=== PATIENT | female | born 1985 | race Caucasian/White ===

== ENCOUNTER 2016-10-12 23:04 | Emergency (ER) | payer OTHER ==
--- NOTE | 2016-10-13 00:46 | ED CLINICAL REPORT ---
Clinical Report - Physicians/Mid Levels [facility] [address] [place] [address] 10/12/2016 23:05 Patient: NORRIS BHAGAT Time Seen: 23:12; initial patient contact. Arrived- By private vehicle. Historian- patient. HISTORY OF PRESENT ILLNESS Chief Complaint: DENTAL PAIN. This started about 6 months ago and is still present. Pain described as moderate. The patient has had toothache. No swollen jaw or face, jaw pain or facial pain. Similar symptoms previously: Many times. Recent medical care: Not recently seen/assessed. REVIEW OF SYSTEMS No fever, nausea, headache or vomiting. All systems otherwise negative, except as recorded above. PAST HISTORY Dental Caries. Healing Abscess. Cellulitis. Abscess Check. Tetanus Status. Abscess. Asthma. ADDITIONAL SURGERIES: Appendectomy. SOCIAL HISTORY Current every day smoker. No alcohol use or drug use. ADDITIONAL NOTES The nursing notes have been reviewed. PHYSICAL EXAM Vital Signs: 10/12/2016 23:11 BP: 127/79. HR: 88. RR: 20. O2 saturation: 97%. Temp: 98.4 F. Pain level now: 8/10. Have been reviewed as normal. Appearance: Alert. No acute distress. Head: Normal external inspection. ENT: Moderate, localized dental decay (upper right first premolar and second premolar). Moderate dental tenderness of multiple teeth (upper right first premolar and second premolar). No gingival tenderness, induration, swelling or fluctuance. Ears normal. Nose normal. Gums normal. No trismus present. Neck: No adenopathy. PROGRESS AND PROCEDURES Course of Care: Hydrocodone/APAP 5 mg PO given. Physical exam findings are improved. Symptoms much better. Disposition: Discharged home in good and improved condition. Condition: good. CLINICAL IMPRESSION Moderate dental pain. INSTRUCTIONS Your Current Medications: CONTINUE TAKING THE FOLLOWING MEDICATIONS: Gabapentin Oral. Methadone HCl Oral. Vistaril Oral. Wellbutrin SR Oral. Prescription Medications: Hydrocodone/APAP 5mg / 325mg: take 1 orally every 6 hours as needed for pain. Dispense fifteen (15). No refill. Follow-up: Screening today revealed the patient's blood pressure to be in the pre-hypertensive range. The patient should follow up with a primary care provider for blood pressure management. Follow-up with: [facility], , , , , , Follow up in about two days. Call for an appointment. (Electronically signed by Michel Rodrigues Dr. 10/13/2016 10:12)
--- NOTE | 2016-10-13 00:46 | ED CLINICAL REPORT ---
Clinical Report - Physicians/Mid Levels [facility] [address] [place] [address] 10/12/2016 23:05 Patient: NORRIS BHAGAT Time Seen: 23:12; initial patient contact. Arrived- By private vehicle. Historian- patient. HISTORY OF PRESENT ILLNESS Chief Complaint: DENTAL PAIN. This started about 6 months ago and is still present. Pain described as moderate. The patient has had toothache. No swollen jaw or face, jaw pain or facial pain. Similar symptoms previously: Many times. Recent medical care: Not recently seen/assessed. REVIEW OF SYSTEMS No fever, nausea, headache or vomiting. All systems otherwise negative, except as recorded above. PAST HISTORY Dental Caries. Healing Abscess. Cellulitis. Abscess Check. Tetanus Status. Abscess. Asthma. ADDITIONAL SURGERIES: Appendectomy. SOCIAL HISTORY Current every day smoker. No alcohol use or drug use. ADDITIONAL NOTES The nursing notes have been reviewed. PHYSICAL EXAM Vital Signs: 10/12/2016 23:11 BP: 127/79. HR: 88. RR: 20. O2 saturation: 97%. Temp: 98.4 F. Pain level now: 8/10. Have been reviewed as normal. Appearance: Alert. No acute distress. Head: Normal external inspection. ENT: Moderate, localized dental decay (upper right first premolar and second premolar). Moderate dental tenderness of multiple teeth (upper right first premolar and second premolar). No gingival tenderness, induration, swelling or fluctuance. Ears normal. Nose normal. Gums normal. No trismus present. Neck: No adenopathy. PROGRESS AND PROCEDURES Course of Care: Hydrocodone/APAP 5 mg PO given. Physical exam findings are improved. Symptoms much better. Disposition: Discharged home in good and improved condition. Condition: good. CLINICAL IMPRESSION Moderate dental pain. INSTRUCTIONS Your Current Medications: CONTINUE TAKING THE FOLLOWING MEDICATIONS: Gabapentin Oral. Methadone HCl Oral. Vistaril Oral. Wellbutrin SR Oral. Prescription Medications: Hydrocodone/APAP 5mg / 325mg: take 1 orally every 6 hours as needed for pain. Dispense fifteen (15). No refill. Follow-up: Screening today revealed the patient's blood pressure to be in the pre-hypertensive range. The patient should follow up with a primary care provider for blood pressure management. Follow-up with: [facility], , , , , , Follow up in about two days. Call for an appointment. (Electronically signed by Michel Rodrigues Dr. 10/13/2016 10:12)
--- NOTE | 2016-10-13 00:46 | ED ORDER SUMMARY ---
..... Patient: NORRIS BHAGAT OrderSheet [facility] VisitID: [id number] [address] [place] [address] 30y, F Registration Date/Time: 10/12/2016 ORDER SHEET Weight: 131.5 kg (stated) Allergies: NSAIDs GENERAL ORDERS: MEDICATION ORDERS: Hydrocodone-APAP PO 5/325 mg (NOW, HIGH ALERT MEDICATION) (00:04 10/13/2016 Julieta Milner) (Ack 0:06 Tawanda R.NRufino) (0:12 HSoule) IV FLUIDS: ORDER SHEET NOTES: [Electronically signed by Leena Bush (03:21 10/13/2016)] [Electronically signed by Michel Rodrigues Dr. (10:12 10/13/2016)] [Electronically locked/signed by Leena Bush (03:21 10/13/2016)]
--- NOTE | 2016-10-13 00:46 | ED ORDER SUMMARY ---
..... Patient: NORRIS BHAGAT OrderSheet [facility] VisitID: [id number] [address] [place] [address] 30y, F Registration Date/Time: 10/12/2016 ORDER SHEET Weight: 131.5 kg (stated) Allergies: NSAIDs GENERAL ORDERS: MEDICATION ORDERS: Hydrocodone-APAP PO 5/325 mg (NOW, HIGH ALERT MEDICATION) (00:04 10/13/2016 Julieta iMlner) (Ack 0:06 Tawanda R.NRufino) (0:12 HSoule) IV FLUIDS: ORDER SHEET NOTES: [Electronically signed by Leena Bush (03:21 10/13/2016)] [Electronically signed by Michel Rodrigues Dr. (10:12 10/13/2016)] [Electronically locked/signed by Leena Bush (03:21 10/13/2016)]
--- NOTE | 2016-10-13 00:46 | ED NURSING NOTES ---
Clinical Report - [facility] [address] [place] [address] 10/12/2016 23:05 [id number] Triage time 23:Oct 12 2016. Acuity: LEVEL 4. Chief Complaint: RIGHT LOWER and LEFT LOWER TOOTHACHE. SEPSIS SCREEN: Sepsis Screen: negative. Negative (no infection suspected/documented). RENEE COMA SCORE: Renee Coma Scale: 15- eyes open spontaneously (4); best verbal response- oriented x 4 (5); best motor response- obeys commands (6). --23:17 Leena Bush 23:11 10/12/16. BP: 127/79. HR: 88. RR: 20. O2 saturation: 97% on room air. Temp: 98.4 F (oral). Pain level now: 02/23. --23:17 Leena Bush. Weight: 131.5 kg stated. Height/Length: 62 inches Per Patient. BMI: 53.1. --23:14 Leena Bush. Medications Wellbutrin SR Oral. --23:13 Leena Bush Vistaril Oral. --23:13 Leena Bush Gabapentin Oral. --23:14 Leena Bush Methadone HCl Oral. --23:14 Leena Bush. Allergies NSAIDs. --23:13 Leena Bush. History Arrived by private vehicle. Historian: patient. Accompanied by family. This is a recurrent problem. (months). ( Patient reports six months of dental pain and issues with decayed broken teeth on both the right and left lower jaw. She reports a one year wait for state dental. She reports previous use of antibiotics with no improvement. She reports the pain has increased and she could not wait anymore to be seen.). She has no dental appointment scheduled. PAST MEDICAL HX: Immunizations: up-to-date. Last normal menstrual period- September 20. SOCIAL HX: Light tobacco smoker (cigarette)- less than 1/2 a pack per day. No alcohol use or drug use. No infectious disease exposure. ABUSE ASSESSMENT: No report of abuse. FALL RISK ASSESSMENT: Fall risk assessment completed. No fall risk identified. NUTRITIONAL RISK ASSESSMENT: The nutritional risk assessment revealed no deficiencies. FUNCTIONAL ASSESSMENT: Functional assessment: no impairments noted. LEARNING NEEDS ASSESSMENT: The learning needs assessment revealed no barriers. SKIN INTEGRITY ASSESSMENT: Skin integrity risk assessment completed. No skin integrity risk identified. --23:17 Leena Bush. PROBLEMS: Dental Caries. Healing Abscess. Cellulitis. Abscess Check. Tetanus Status. Abscess. Asthma. Immunizations. LNMP - Last Normal Menstrual Period. --23:14 Leena Bush. ADDITIONAL SURGERIES: Appendectomy. --23:14 Leena Bush. Interventions ID band on patient. To treatment room. --23:17 Leena Bush. PHYSICAL ASSESSMENT Ambulatory to room. GENERAL / NEURO / PSYCH: Alert. Oriented X 4. Appears in no acute distress. HEENT: Dental decay (right lower molar area, left lower molar area). Mucous membranes are pink. RESPIRATORY: Respirations not labored. SKIN: Skin is warm and dry. --23:18 Leena Bush. NURSING PROGRESS NOTES 23:18 10/12/16. Pulse oximeter and NIBP monitor placed on patient. Reassurance given to the patient. Two patient identifiers checked. Call light placed in reach. Side rails up x 1. Bed placed in lowest position. Brakes of bed on. Patient ready for evaluation- chart flagged and ED physician notified. --23:18 Leena Bush 00:12 10/13/2016 Hydrocodone-APAP (Hydrocodone-Acetaminophen) PO 5/325 mg Tablets 1 tab given. Allergies verified, confirmed 5 rights and sedative warning given to the patient and patient's family. --00:12 Leena Bush Reassessment after medication administered. Overall patient status- she states feels better. --00:39 Leena Bush. DISPOSITION / DISCHARGE 01:00 10/13/16. Condition at departure: improved and stable. The goals identified in the patient's plan of care were met. No learning barriers present. Discharge instructions provided and reviewed with the patient and spouse. Reviewed medication(s) side effects, precautions, dosing and course information. Prescription(s) given to the patient. Patient and spouse verbalized understanding. Written instructions provided in Guyanese. ( Dental resources provided, suggested to patient to visit walk in hours for [facility]. Swish with warm salt water, take anti-inflammatories as needed. Do not drive while on sedative medications. Return if symptoms of infection present.). The patient was discharged by the physician. She was discharged home and accompanied by spouse. She left the Emergency Department ambulatory and via private vehicle. Spouse driving. FALL RISK ASSESSMENT: Fall risk assessment completed. No fall risk identified. --03:19 Leena Bush 01:00 10/13/16. BP: 126/60. HR: 87. RR: 20. O2 saturation: 97% on room air. Temp: 98.2 F (oral). Pain level now: 11/23. --03:19 Leena Bush. Locked/Released at 10/13/2016 3:21 by Leena Bush,
--- NOTE | 2016-10-13 10:12 | ED DISCHARGE INSTRUCTIONS ---
Patient: NORRIS BHAGAT General Instructions [facility] VisitID: [id number] [place] [address] 30y, F Registration Date/Time: 10/12/2016 Moderate dental pain. INSTRUCTIONS Your Current Medications: CONTINUE TAKING THE FOLLOWING MEDICATIONS: Gabapentin Oral. Methadone HCl Oral. Vistaril Oral. Wellbutrin SR Oral. Prescription Medications: Hydrocodone/APAP 5mg / 325mg: take 1 orally every 6 hours as needed for pain. Dispense fifteen (15). No refill. Follow-up: Screening today revealed the patient's blood pressure to be in the pre-hypertensive range. The patient should follow up with a primary care provider for blood pressure management. Follow-up with: [facility], , , , , , Follow up in about two days. Call for an appointment. ADDITIONAL INFORMATION Dental Pain A crack or cavity in the tooth, which exposes the sensitive inner area of the tooth can cause tooth pain. An infection in the gum or the root of the tooth can cause pain and swelling. The pain is often made worse by drinking hot or cold fluids, or biting on hard foods. Pain may spread from the tooth to the ear or jaw on the same side. Home Care: Avoid hot and cold foods and liquids since your tooth may be sensitive to temperature changes. If your tooth is chipped or cracked, or if there is a large open cavity, apply OIL OF CLOVES (available [id number]-[id number] in drug stores) directly to the tooth to reduce pain. Some pharmacies carry an qpvx-pxh-zhginby "toothache kit." This contains a paste, which can be applied over the exposed tooth to decrease sensitivity. A cold pack on your jaw over the sore area may help reduce pain. You may use acetaminophen (Tylenol) or ibuprofen (Motrin, Advil) to control pain, unless another medicine was prescribed. [ NOTE: If you have chronic liver or kidney disease or ever had a stomach ulcer or GI bleeding, talk with your doctor before using these medicines.] If you have signs of an infection, an antibiotic will be given. Take it as directed. Follow-Up as directed with a dentist. Your pain may go away with the treatment given. However, only a dentist can fully evaluate and treat the cause and prevent the pain from coming back again. TOOTHACHE IS A SIGN OF DISEASE IN YOUR TOOTH AND SHOULD BE EXAMINED AND TREATED BY A DENTIST. Get Prompt Medical Attention if any of the following occur: Your face becomes swollen or red Pain worsens or spreads to the neck Fever over 100.4 F (38.0 C) Unusual drowsiness; headache or stiff neck; weakness or fainting Pus drains from the tooth Difficulty swallowing or breathing Hydrocodone Bitartrate, Acetaminophen Oral tablet What is this medicine? ACETAMINOPHEN; HYDROCODONE (a set a FLACO taqueria fen; akira droe KOE done) is a pain reliever. It is used to treat mild to moderate pain. How should I use this medicine? Take this medicine by mouth. Swallow it with a full glass of water. Follow the directions on the prescription label. If the medicine upsets your stomach, take the medicine with food or milk. Do not take more than you are told to take. Talk to your forest practices field coordinator regarding the use of this medicine in children. This medicine is not approved for use in children. What side effects may I notice from receiving this medicine? Side effects that you should report to your doctor or health child day care center worker as soon as possible: allergic reactions like skin rash, itching or hives, swelling of the face, lips, or tongue breathing problems confusion feeling faint or lightheaded, falls stomach pain yellowing of the eyes or skin Side effects that usually do not require medical attention (report to your doctor or health child day care center worker if they continue or are bothersome): nausea, vomiting stomach upset What may interact with this medicine? alcohol antihistamines isoniazid medicines for depression, anxiety, or psychotic disturbances medicines for sleep muscle relaxants naltrexone narcotic medicines (opiates) for pain phenobarbital ritonavir tramadol What if I miss a dose? If you miss a dose, take it as soon as you can. If it is almost time for your next dose, take only that dose. Do not take double or extra doses. Where should I keep my medicine? Keep out of the reach of children. This medicine can be abused. Keep your medicine in a safe place to protect it from theft. Do not share this medicine with anyone. Selling or giving away this medicine is dangerous and against the law. Store at room temperature between 15 and 30 degrees C (59 and 86 degrees F). Protect from light. Keep container tightly closed. Throw away any unused medicine after the expiration date. Discard unused medicine and used packaging carefully. Pets and children can be harmed if they find used or lost packages. What should I tell my health care provider before I take this medicine? They need to know if you have any of these conditions: brain tumor Crohn's disease, inflammatory bowel disease, or ulcerative colitis drink more than 3 alcohol-containing drinks per day drug abuse or addiction head injury heart or circulation problems kidney disease or problems going to the bathroom liver disease lung disease, asthma, or breathing problems an unusual or allergic reaction to acetaminophen, hydrocodone, other opioid analgesics, other medicines, foods, dyes, or preservatives or trying to get breast-feeding What should I watch for while using this medicine? Tell your doctor or health child day care center worker if your pain does not go away, if it gets worse, or if you have new or a different type of pain. You may develop tolerance to the medicine. Tolerance means that you will need a higher dose of the medicine for pain relief. Tolerance is normal and is expected if you take the medicine for a long time. Do not suddenly stop taking your medicine because you may develop a severe reaction. Your body becomes used to the medicine. This does NOT mean you are addicted. Addiction is a behavior related to getting and using a drug for a non-medical reason. If you have pain, you have a medical reason to take pain medicine. Your doctor will tell you how much medicine to take. If your doctor wants you to stop the medicine, the dose will be slowly lowered over time to avoid any side effects. You may get drowsy or dizzy when you first start taking the medicine or change doses. Do not drive, use machinery, or do anything that may be dangerous until you know how the medicine affects you. Stand or sit up slowly. There are different types of narcotic medicines (opiates) for pain. If you take more than one type at the same time, you may have more side effects. Give your health care provider a list of all medicines you use. Your doctor will tell you how much medicine to take. Do not take more medicine than directed. Call emergency for help if you have problems breathing. The medicine will cause constipation. Try to have a bowel movement at least every 2 to 3 days. If you do not have a bowel movement for 3 days, call your doctor or health child day care center worker. Too much acetaminophen can be very dangerous. Do not take Tylenol (acetaminophen) or medicines that contain acetaminophen with this medicine. Many non-prescription medicines contain acetaminophen. Always read the labels carefully. You have been given the following additional information: Dental Pain Hydrocodone Bitartrate, Acetaminophen Oral tablet (Electronically signed by Michel Rodrigues Dr. 10/13/2016 10:12)
--- NOTE | 2016-10-13 10:12 | ED MED RECONCILIATION SUMMARY ---
Patient: NORRIS BHAGAT Medication Reconciliation Report [facility] VisitID: [id number] [address] [place] [address] 30y, F Registration Date/Time: 10/12/2016 Weight: 131.5 kg Height/Length: 62 in. BMI: 53.1 ALLERGIES: NSAIDs The patient's Home Medications are listed below: CONTINUE TAKING THE FOLLOWING MEDICATIONS: Gabapentin Oral Methadone HCl Oral Vistaril Oral Wellbutrin SR Oral The source(s) of the original Home Medication information: Not obtained. The following Medications were given to the patient in the Emergency Department: Hydrocodone-APAP [PO] PO 1 tab, administered: 10/13/2016 12:12:00 AM The following Medications were prescribed to the patient: Hydrocodone/APAP 5mg / 325mg: take 1 orally every 6 hours as needed for pain. Dispense fifteen (15). No refill. -- Michel Rodrigues Dr.
--- NOTE | 2016-10-13 10:12 | ED MED RECONCILIATION SUMMARY ---
Patient: NORRIS BHAGAT Medication Reconciliation Report [facility] VisitID: [id number] [address] [place] [address] 30y, F Registration Date/Time: 10/12/2016 Weight: 131.5 kg Height/Length: 62 in. BMI: 53.1 ALLERGIES: NSAIDs The patient's Home Medications are listed below: CONTINUE TAKING THE FOLLOWING MEDICATIONS: Gabapentin Oral Methadone HCl Oral Vistaril Oral Wellbutrin SR Oral The source(s) of the original Home Medication information: Not obtained. The following Medications were given to the patient in the Emergency Department: Hydrocodone-APAP [PO] PO 1 tab, administered: 10/13/2016 12:12:00 AM The following Medications were prescribed to the patient: Hydrocodone/APAP 5mg / 325mg: take 1 orally every 6 hours as needed for pain. Dispense fifteen (15). No refill. -- Michel Rodrigues Dr.
--- NOTE | 2016-10-13 10:12 | ED DISCHARGE INSTRUCTIONS ---
Patient: NORRIS BHAGAT General Instructions [facility] VisitID: [id number] [place] [address] 30y, F Registration Date/Time: 10/12/2016 Moderate dental pain. INSTRUCTIONS Your Current Medications: CONTINUE TAKING THE FOLLOWING MEDICATIONS: Gabapentin Oral. Methadone HCl Oral. Vistaril Oral. Wellbutrin SR Oral. Prescription Medications: Hydrocodone/APAP 5mg / 325mg: take 1 orally every 6 hours as needed for pain. Dispense fifteen (15). No refill. Follow-up: Screening today revealed the patient's blood pressure to be in the pre-hypertensive range. The patient should follow up with a primary care provider for blood pressure management. Follow-up with: [facility], , , , , , Follow up in about two days. Call for an appointment. ADDITIONAL INFORMATION Dental Pain A crack or cavity in the tooth, which exposes the sensitive inner area of the tooth can cause tooth pain. An infection in the gum or the root of the tooth can cause pain and swelling. The pain is often made worse by drinking hot or cold fluids, or biting on hard foods. Pain may spread from the tooth to the ear or jaw on the same side. Home Care: Avoid hot and cold foods and liquids since your tooth may be sensitive to temperature changes. If your tooth is chipped or cracked, or if there is a large open cavity, apply OIL OF CLOVES (available zvla-qym-hjnucuv in drug stores) directly to the tooth to reduce pain. Some pharmacies carry an ypht-vza-[id number] "toothache kit." This contains a paste, which can be applied over the exposed tooth to decrease sensitivity. A cold pack on your jaw over the sore area may help reduce pain. You may use acetaminophen (Tylenol) or ibuprofen (Motrin, Advil) to control pain, unless another medicine was prescribed. [ NOTE: If you have chronic liver or kidney disease or ever had a stomach ulcer or GI bleeding, talk with your doctor before using these medicines.] If you have signs of an infection, an antibiotic will be given. Take it as directed. Follow-Up as directed with a dentist. Your pain may go away with the treatment given. However, only a dentist can fully evaluate and treat the cause and prevent the pain from coming back again. TOOTHACHE IS A SIGN OF DISEASE IN YOUR TOOTH AND SHOULD BE EXAMINED AND TREATED BY A DENTIST. Get Prompt Medical Attention if any of the following occur: Your face becomes swollen or red Pain worsens or spreads to the neck Fever over 100.4 F (38.0 C) Unusual drowsiness; headache or stiff neck; weakness or fainting Pus drains from the tooth Difficulty swallowing or breathing Hydrocodone Bitartrate, Acetaminophen Oral tablet What is this medicine? ACETAMINOPHEN; HYDROCODONE (a set a FLACO taqueria fen; akira droe KOE done) is a pain reliever. It is used to treat mild to moderate pain. How should I use this medicine? Take this medicine by mouth. Swallow it with a full glass of water. Follow the directions on the prescription label. If the medicine upsets your stomach, take the medicine with food or milk. Do not take more than you are told to take. Talk to your disc pad knockout worker regarding the use of this medicine in children. This medicine is not approved for use in children. What side effects may I notice from receiving this medicine? Side effects that you should report to your doctor or health zoo caretaker as soon as possible: allergic reactions like skin rash, itching or hives, swelling of the face, lips, or tongue breathing problems confusion feeling faint or lightheaded, falls stomach pain yellowing of the eyes or skin Side effects that usually do not require medical attention (report to your doctor or health zoo caretaker if they continue or are bothersome): nausea, vomiting stomach upset What may interact with this medicine? alcohol antihistamines isoniazid medicines for depression, anxiety, or psychotic disturbances medicines for sleep muscle relaxants naltrexone narcotic medicines (opiates) for pain phenobarbital ritonavir tramadol What if I miss a dose? If you miss a dose, take it as soon as you can. If it is almost time for your next dose, take only that dose. Do not take double or extra doses. Where should I keep my medicine? Keep out of the reach of children. This medicine can be abused. Keep your medicine in a safe place to protect it from theft. Do not share this medicine with anyone. Selling or giving away this medicine is dangerous and against the law. Store at room temperature between 15 and 30 degrees C (59 and 86 degrees F). Protect from light. Keep container tightly closed. Throw away any unused medicine after the expiration date. Discard unused medicine and used packaging carefully. Pets and children can be harmed if they find used or lost packages. What should I tell my health care provider before I take this medicine? They need to know if you have any of these conditions: brain tumor Crohn's disease, inflammatory bowel disease, or ulcerative colitis drink more than 3 alcohol-containing drinks per day drug abuse or addiction head injury heart or circulation problems kidney disease or problems going to the bathroom liver disease lung disease, asthma, or breathing problems an unusual or allergic reaction to acetaminophen, hydrocodone, other opioid analgesics, other medicines, foods, dyes, or preservatives or trying to get breast-feeding What should I watch for while using this medicine? Tell your doctor or health zoo caretaker if your pain does not go away, if it gets worse, or if you have new or a different type of pain. You may develop tolerance to the medicine. Tolerance means that you will need a higher dose of the medicine for pain relief. Tolerance is normal and is expected if you take the medicine for a long time. Do not suddenly stop taking your medicine because you may develop a severe reaction. Your body becomes used to the medicine. This does NOT mean you are addicted. Addiction is a behavior related to getting and using a drug for a non-medical reason. If you have pain, you have a medical reason to take pain medicine. Your doctor will tell you how much medicine to take. If your doctor wants you to stop the medicine, the dose will be slowly lowered over time to avoid any side effects. You may get drowsy or dizzy when you first start taking the medicine or change doses. Do not drive, use machinery, or do anything that may be dangerous until you know how the medicine affects you. Stand or sit up slowly. There are different types of narcotic medicines (opiates) for pain. If you take more than one type at the same time, you may have more side effects. Give your health care provider a list of all medicines you use. Your doctor will tell you how much medicine to take. Do not take more medicine than directed. Call emergency for help if you have problems breathing. The medicine will cause constipation. Try to have a bowel movement at least every 2 to 3 days. If you do not have a bowel movement for 3 days, call your doctor or health zoo caretaker. Too much acetaminophen can be very dangerous. Do not take Tylenol (acetaminophen) or medicines that contain acetaminophen with this medicine. Many non-prescription medicines contain acetaminophen. Always read the labels carefully. You have been given the following additional information: Dental Pain Hydrocodone Bitartrate, Acetaminophen Oral tablet (Electronically signed by Michel Rodrigues Dr. 10/13/2016 10:12)
--- NOTE | 2016-10-13 10:12 | ED MAR SUMMARY ---
..... Medication Administration Record [facility] [address] [place] [address] Patient: NORRIS BHAGAT Visit ID: [id number] 30y, F Weight: 131.5 kg Height/Length: 62 in BMI: 53.1 ALLERGIES: NSAIDs Given 00:12 10/13/2016 Leena Bush, Medication Administered: HYDROCODONE-APAP [PO] (HYDROCODONE-ACETAMINOPHEN), Dose: 1 tab 5/325 mg Tablets PO. Medication Ordered: Hydrocodone-APAP PO 5/325 mg (NOW, HIGH ALERT MEDICATION).
--- NOTE | 2016-10-13 10:12 | ED MAR SUMMARY ---
..... Medication Administration Record [facility] [address] [place] [address] Patient: NORRIS BHAGAT Visit ID: [id number] 30y, F Weight: 131.5 kg Height/Length: 62 in BMI: 53.1 ALLERGIES: NSAIDs Given 00:12 10/13/2016 Leena Bush, Medication Administered: HYDROCODONE-APAP [PO] (HYDROCODONE-ACETAMINOPHEN), Dose: 1 tab 5/325 mg Tablets PO. Medication Ordered: Hydrocodone-APAP PO 5/325 mg (NOW, HIGH ALERT MEDICATION).
== END 2016-10-13 01:00 | disposition home or self-care (01) ==
LOC: ED SRH 23:04
DX: K08.89 Other specified disorders of teeth and supporting structures (principal); J45.909 Unspecified asthma, uncomplicated; Z79.899 Other long term (current) drug therapy; F17.210 Nicotine dependence, cigarettes, uncomplicated; Z88.6 Allergy status to analgesic agent